=== PATIENT | female | born 1965 | race Two or more races ===

== ENCOUNTER 2025-01-19 11:50 | Day surgery (SDC) | payer MEDICAID, SELFPAY ==
[2025-01-18 09:41] VITALS: BMI 36.6
[2025-01-19] VITALS (11 sets, daily range): BP systolic 110–175; BP diastolic 67–90; PULSE 59–80; RESP 13–20; TEMP 36.3–36.6; O2SAT 96–100; BMI 37.3
[2025-01-19] MEDS: RINGERS LACTATED 1000 ML 1,000 ML 100 ML IV (13:20)
[2025-01-19] MEDS: fentaNYL CIT INJ 50 mCg/ML AMP 2ML (ASD USE ONLY) IV (13:26)
[2025-01-19] MEDS: MIDAZOLAM INJ 1 MG/ML VIAL 2 ML (ASD USE ONLY) 2 MG IV (13:34)
--- NOTE | 2025-01-19 13:49 | SUR.PHASEII ---
PATIENT INTO RECOVERY WITH NO ACUTE DISTRESS NOTED, V/S STABLE, PATIENT DENIES PAIN AND NAUSEA AT THIS TIME, PATIENT PASSING FLATUS, REPORT RECEIVED FROM SRINIVAS SHANNON/ALTON SHANNON.
== END 2025-01-19 14:35 | disposition home or self-care (01) ==
PROVIDERS: PCP Nurse Practitioner Primary Care; Referring Provider Surgery; Visit Provider Surgery
PROC: 0DBE8ZX Excision of Large Intestine, Via Natural or Artificial Opening Endoscopic, Diagnostic (ICD-10-PCS; CPT 45380; principal; 2025-01-19 13:00)
DX: Z12.11 Encounter for screening for malignant neoplasm of colon (principal); Z80.0 Family history of malignant neoplasm of digestive organs
CPT/HCPCS: 45378; A4217; J2250; J3010; J7120